=== PATIENT | female | born 1980 | race Caucasian/White ===

== ENCOUNTER 2021-07-07 14:11 | Emergency (ER) | payer SELFPAY ==
[~2021-07-07] VITALS: Ht 152.4 cm; Wt 63.0 kg
[2021-07-07 14:15] VITALS: BP 142/80
[2021-07-07] MEDS ORDERED: ACET-2708 MT (14:51)
[2021-07-07] MEDS ORDERED: TETANUS, DIPHTHERIA, PERTUSSIS VAC/PF 0.5ML (>10YR OLD) IM ONE (15:00)
[2021-07-07] MEDS ORDERED: ACETAMINOPHEN WITH CODEINE 300/30MG TABLET PO ONE (15:00)
== END 2021-07-07 16:01 | disposition home or self-care (01) ==
LOC: ER 14:11
DX: S09.8XXA Other specified injuries of head, initial encounter (principal); V49.49XA Driver injured in collision with other motor vehicles in traffic accident, initial encounter; Y93.89 Activity, other specified; Y92.89 Other specified places as the place of occurrence of the external cause; Y99.8 Other external cause status
CPT/HCPCS: 90471; 90715; 99283